=== PATIENT | female | born 1995 | race Caucasian/White ===

== ENCOUNTER 2016-03-11 14:55 | Emergency (ER) | payer OTHER ==
[~2016-03-11] VITALS: Ht 170.2 cm; Wt 84.1 kg
[~2016-03-11 14:55] MED LIST: FOCALIN XR20 MG PO; NORCO 325 MG-51 TAB PO; ZOFRAN 4MG T4 MG/TAB PO
[2016-03-11 15:05] VITALS: BP 142/83; PULSE 106; TEMP 99.6
[2016-03-11] MEDS ORDERED: AMOXICILLIN 50500 MG PO (15:24)
== END 2016-03-11 15:27 | disposition home or self-care (01) ==
LOC: COL.ER 14:55
DX: H66.91 Otitis media, unspecified, right ear (principal); J06.9 Acute upper respiratory infection, unspecified

== ENCOUNTER 2016-09-08 08:26 | Emergency (ER) | payer MEDICAID ==
[~2016-09-08] VITALS: Ht 170.2 cm; Wt 88.6 kg
[~2016-09-08 08:26] MED LIST changes: +AMOXICILLIN 50500 MG PO
[2016-09-08 08:31] VITALS: BP 130/69; TEMP 98.3
[2016-09-08 09:32] LABS: ADJUSTED CALCIUM 9.4 mg/dL (8.4-10.2); ALBUMIN 4.4 gm/dL (3.5-5.0); BILIRUBIN,TOTAL 0.6 mg/dL (0.0-1.0); CALCIUM 9.7 mg/dL (8.4-10.2); CREATININE, serum 0.48 mg/dL (0.52-1.25); POTASSIUM 3.9 mmol/L (3.4-5.0); TOTAL PROTEIN 7.6 gm/dL (6.4-8.2)
[2016-09-08 09:33] LABS: BASO % 0.3 % (0.0-2.0); EOS # 0.2 (0.0-0.7); GRAN # 5.5 (1.4-6.5); GRAN % 73.8 % (42.2-75.2); HEMOGLOBIN 13.4 g/dl (12.0-15.0); LYMPH # 1.2 (1.2-3.4); LYMPH % 15.8 % (20.0-51.0); MEAN CELL VOLUME 80 fl (80.0-95.0); MEAN CORPUSCULAR HEMOGLOBIN 28 pg (26.0-32.0); MEAN CORPUSCULAR HGB CONC 34 g/dl (33.0-37.0); MEAN PLATELET VOLUME 11.3 fl (7.4-10.4); MONO # 0.6 (0.1-0.6); MONO % 7.8 % (1.7-9.3); PLATELET COUNT 252 K/mm3 (130-400); RED BLOOD COUNT 4.88 M/mm3 (4.10-5.30); REDCELL DISTRIBUTION WIDTH-CV 14.9 % (11.5-14.5); WHITE BLOOD COUNT 7.5 K/mm3 (4.8-10.8)
[2016-09-08 09:44] LABS: PH 8 (5-8); SQUAMOUS EPITHELIAL >50 /hpf; URINE APPEARANCE Turbid; URINE BACTERIA None Seen /hpf; URINE BILIRUBIN Negative (NEGATIVE); URINE BLOOD Negative (NEGATIVE); URINE COLOR Amber; URINE GLUCOSE Negative (NEGATIVE); URINE KETONE Negative (NEGATIVE); URINE UROBILINOGEN Negative (NEGATIVE); URINE WBC 20-50 /hpf
[2016-09-08] MEDS ORDERED: MACROBID 1100 MG/CAP PO (09:47)
[2016-09-08 10:55] VITALS: PULSE 78
== END 2016-09-08 10:56 | disposition home or self-care (01) ==
LOC: COL.ER 08:26
PROVIDERS: Nurse Practitioner
DX: O23.41 Unspecified infection of urinary tract in pregnancy, first trimester (principal); O21.9 Vomiting of pregnancy, unspecified; O99.331 Smoking (tobacco) complicating pregnancy, first trimester; F17.210 Nicotine dependence, cigarettes, uncomplicated; Z3A.13 13 weeks gestation of pregnancy
CPT/HCPCS: J2765; J7030

== ENCOUNTER 2016-11-05 02:44 | Emergency (ER) | payer OTHER ==
[~2016-11-05] VITALS: Ht 170.2 cm; Wt 89.1 kg
[~2016-11-05 02:44] MED LIST changes: +MACROBID 1100 MG/CAP PO
[2016-11-05 02:46] VITALS: TEMP 97.2
[2016-11-05] MEDS ORDERED: PRENATAL1 TA7 PO (02:52)
[2016-11-05 03:24] LABS: COLLECTION METHOD CLEAN CATCH
[2016-11-05 03:27] LABS: BASO % 0.4 % (0.0-2.0); EOS # 0.1 (0.0-0.7); EOS % 1.5 % (0-4.0); GRAN # 5.9 (1.4-6.5); GRAN % 68.6 % (42.2-75.2); LYMPH # 1.6 (1.2-3.4); LYMPH % 18.3 % (20.0-51.0); MEAN CELL VOLUME 82 fl (80.0-95.0); MEAN CORPUSCULAR HGB CONC 35 g/dl (33.0-37.0); MEAN PLATELET VOLUME 11.4 fl (7.4-10.4); MONO # 0.9 (0.1-0.6); MONO % 10.6 % (1.7-9.3); PLATELET COUNT 250 K/mm3 (130-400); RED BLOOD COUNT 4.04 M/mm3 (4.10-5.30); REDCELL DISTRIBUTION WIDTH-CV 14.6 % (11.5-14.5)
[2016-11-05 03:28] LABS: HEMATOCRIT 33.2 % (35.0-45.0); HEMOGLOBIN 11.5 g/dl (12.0-15.0); MEAN CORPUSCULAR HEMOGLOBIN 28 pg (26.0-32.0)
[2016-11-05 03:34] LABS: AMORPHOUS CRYSTAL Present /uL; MUCOUS Present /lpf; PH 7 (5-8); SQUAMOUS EPITHELIAL 20-50 /hpf; URINE APPEARANCE Cloudy; URINE BACTERIA Moderate /hpf; URINE BILIRUBIN Negative (NEGATIVE); URINE BLOOD Negative (NEGATIVE); URINE COLOR Yellow; URINE GLUCOSE Negative (NEGATIVE); URINE KETONE Negative (NEGATIVE); URINE LEUKOCYTE ESTERASE 3+ (NEGATIVE); URINE NITRATE Negative (NEGATIVE); URINE PROTEIN(semi-quant) Negative (NEGATIVE); URINE RBC 0-2 /hpf; URINE UROBILINOGEN Negative (NEGATIVE)
[2016-11-05 03:38] LABS: ALBUMIN 3.6 gm/dL (3.5-5.0); BILIRUBIN,TOTAL 0.3 mg/dL (0.0-1.0); CREATININE, serum 0.49 mg/dL (0.52-1.25); POTASSIUM 3.2 mmol/L (3.4-5.0); TOTAL PROTEIN 6.7 gm/dL (6.4-8.2)
[2016-11-05] MEDS ORDERED: MACROBID 1100 MG/CAP PO (03:59)
[2016-11-05] MEDS ORDERED: PHENERGAN 25 TA25 MG PO (04:00)
[2016-11-05 04:46] VITALS: BP 127/70; PULSE 80
== END 2016-11-05 04:48 | disposition home or self-care (01) ==
LOC: COL.ER 02:44
PROVIDERS: Emergency Medicine
DX: O23.42 Unspecified infection of urinary tract in pregnancy, second trimester (principal); B96.89 Other specified bacterial agents as the cause of diseases classified elsewhere; Z3A.22 22 weeks gestation of pregnancy
CPT/HCPCS: J2550; J7030

== ENCOUNTER 2016-11-23 06:33 | Emergency (ER) | payer MEDICAID ==
[~2016-11-23] VITALS: Ht 170.2 cm; Wt 89.1 kg
[~2016-11-23 06:33] MED LIST changes: +PHENERGAN 25 TA25 MG PO; +PRENATAL1 TA7 PO
[2016-11-23 06:36] VITALS: TEMP 98.9
[2016-11-23] MEDS ORDERED: ZITHROMAX 250M250 MG PO (07:00)
[2016-11-23 07:30] VITALS: BP 128/78; PULSE 77
== END 2016-11-23 07:31 | disposition home or self-care (01) ==
LOC: COL.ER 06:33
DX: O99.512 Diseases of the respiratory system complicating pregnancy, second trimester (principal); J40 Bronchitis, not specified as acute or chronic; J32.9 Chronic sinusitis, unspecified; Z3A.24 24 weeks gestation of pregnancy

== ENCOUNTER 2016-12-21 21:49 | Outpatient (CLI) | payer MEDICAID ==
[~2016-12-21] VITALS: Ht 170.2 cm; Wt 93.6 kg
[~2016-12-21 21:49] MED LIST changes: +ZITHROMAX 250M250 MG PO
[2016-12-21 22:05] VITALS: BP 120/70; PULSE 75; TEMP 98
[2016-12-21 22:48] LABS: COLLECTION METHOD CLEAN CATCH
[2016-12-21 22:53] LABS: PH 7 (5-8); SQUAMOUS EPITHELIAL 0-2 /hpf; URINE APPEARANCE Clear; URINE BACTERIA Rare /hpf; URINE BILIRUBIN Negative (NEGATIVE); URINE BLOOD Negative (NEGATIVE); URINE COLOR Yellow; URINE GLUCOSE Negative (NEGATIVE); URINE KETONE Negative (NEGATIVE); URINE LEUKOCYTE ESTERASE Negative (NEGATIVE); URINE PROTEIN(semi-quant) Negative (NEGATIVE); URINE RBC 0-2 /hpf; URINE UROBILINOGEN Negative (NEGATIVE)
== END 2016-12-21 23:10 | disposition home or self-care (01) ==
LOC: LDRO 21:49
PROVIDERS: Student in an Organized Health Care Education/Training Program
DX: O99.89 Other specified diseases and conditions complicating pregnancy, childbirth and the puerperium (principal); M54.9 Dorsalgia, unspecified; Z3A.28 28 weeks gestation of pregnancy

== ENCOUNTER 2017-02-02 20:37 | Outpatient (CLI) | payer OTHER ==
[~2017-02-02] VITALS: Ht 17.8 cm; Wt 96.8 kg
[2017-02-02 21:01] VITALS: BP 131/85; PULSE 72; TEMP 97.9
[2017-02-02 21:30] VITALS: BP 131/85; PULSE 72; TEMP 97.9
[2017-02-02 21:52] VITALS: BP 122/81; PULSE 73
== END 2017-02-02 22:10 | disposition home or self-care (01) ==
LOC: LDRO 20:37 → LDR 20:45 → LDRO 22:10
DX: O62.9 Abnormality of forces of labor, unspecified (principal); Z3A.35 35 weeks gestation of pregnancy
CPT/HCPCS: OP

== ENCOUNTER 2017-02-13 17:51 | Outpatient (CLI) | payer OTHER ==
[~2017-02-13] VITALS: Ht 170.2 cm; Wt 98.6 kg
[2017-02-13] MEDS ORDERED: PRENATAL MVI (18:17)
[2017-02-13 18:22] VITALS: BP 118/76; PULSE 83; TEMP 98.4
== END 2017-02-13 20:05 | disposition home or self-care (01) ==
LOC: LDRO 17:51
DX: O26.893 Other specified pregnancy related conditions, third trimester (principal); R10.9 Unspecified abdominal pain; Z3A.36 36 weeks gestation of pregnancy

== ENCOUNTER 2017-02-17 19:56 | Emergency (ER) | payer MEDICAID ==
[~2017-02-17] VITALS: Ht 170.2 cm; Wt 98.6 kg
[~2017-02-17 19:56] MED LIST changes: +PRENATAL MVI
[2017-02-17 20:03] VITALS: BP 131/85; TEMP 98.5
[2017-02-17] MEDS ORDERED: PEN-VEE K500 MG PO (20:06)
[2017-02-17 22:23] VITALS: PULSE 88
== END 2017-02-17 22:23 | disposition home or self-care (01) ==
LOC: COL.ER 19:56
DX: O99.613 Diseases of the digestive system complicating pregnancy, third trimester (principal); K02.9 Dental caries, unspecified; Z3A.38 38 weeks gestation of pregnancy; Z87.891 Personal history of nicotine dependence

== ENCOUNTER 2017-02-28 13:35 | Inpatient (IN) | payer MEDICAID ==
[~2017-02-28] VITALS: Ht 170.2 cm; Wt 101.4 kg
[2017-02-28] VITALS (31 sets, daily range): BP systolic 105–150; BP diastolic 57–92; PULSE 66–104; TEMP 97.2–98.3
[~2017-02-28 13:35] MED LIST changes: +PEN-VEE K500 MG PO
[2017-02-28] MEDS ORDERED: PRENATAL (14:35)
[2017-02-28 15:01] LABS: BASO % 0.5 % (0.0-2.0); EOS # 0.1 (0.0-0.7); EOS % 0.8 % (0-4.0); GRAN # 5.9 (1.4-6.5); GRAN % 67.9 % (42.2-75.2); LYMPH # 1.6 (1.2-3.4); LYMPH % 18.8 % (20.0-51.0); MEAN CELL VOLUME 79 fl (80.0-95.0); MEAN CORPUSCULAR HGB CONC 32 g/dl (33.0-37.0); MEAN PLATELET VOLUME 11.9 fl (7.4-10.4); MONO % 11.1 % (1.7-9.3); PLATELET COUNT 289 K/mm3 (130-400); RED BLOOD COUNT 4.46 M/mm3 (4.10-5.30); REDCELL DISTRIBUTION WIDTH-CV 15.8 % (11.5-14.5)
[2017-02-28 15:14] LABS: HEMOGLOBIN 11.2 g/dl (12.0-15.0); MEAN CORPUSCULAR HEMOGLOBIN 25 pg (26.0-32.0)
[2017-02-28 16:28] LABS: TRICYCLIC ANTIDEPRESS URINE NEGATIVE
[2017-03-01 01:15] VITALS: BP 126/59; PULSE 86; TEMP 98.6
[2017-03-01 05:15] VITALS: BP 123/71; PULSE 86; TEMP 97.9
[2017-03-01 06:17] LABS: HEMOGLOBIN 8.8 g/dl (12.0-15.0)
[2017-03-01 08:46] VITALS: BP 115/61; PULSE 82; TEMP 97.7
[2017-03-01 17:30] VITALS: BP 127/69; PULSE 92; TEMP 97.8
[2017-03-01 21:00] VITALS: BP 121/62; PULSE 86; TEMP 99.3
[2017-03-02 07:12] VITALS: BP 130/73; PULSE 83; TEMP 98.5
[2017-03-02] MEDS ORDERED: IBU600 MG PO (08:31)
== END 2017-03-02 11:15 | disposition home or self-care (01) | DRG 775 ==
LOC: LDRO 13:35 → LDR 13:36 → OB 14:25 → LDRO 14:25 → LDR 14:25 → OB 23:30
PROVIDERS: Obstetrics & Gynecology
PROC: 10E0XZZ Delivery of Products of Conception, External Approach (ICD-10-PCS; principal; 2017-02-28)
PROC: 0KQM0ZZ Repair Perineum Muscle, Open Approach (ICD-10-PCS; 2017-02-28)
DX: O66.0 Obstructed labor due to shoulder dystocia (principal); O70.1 Second degree perineal laceration during delivery; O69.81X0 Labor and delivery complicated by cord around neck, without compression, not applicable or unspecified; Z3A.38 38 weeks gestation of pregnancy; Z37.0 Single live birth
CPT/HCPCS: J2590; J2795; J7120

== ENCOUNTER 2017-03-04 17:05 | Emergency (ER) | payer MEDICAID ==
[~2017-03-04 17:05] MED LIST changes: +IBU600 MG PO; +PRENATAL
[2017-03-04 17:13] VITALS: TEMP 99.1
[2017-03-04 19:47] LABS: BASO % 0.3 % (0.0-2.0); EOS # 0.3 (0.0-0.7); EOS % 2.3 % (0-4.0); GRAN # 8.3 (1.4-6.5); GRAN % 71.5 % (42.2-75.2); HEMATOCRIT 28.6 % (35.0-45.0); LYMPH # 1.8 (1.2-3.4); LYMPH % 15.3 % (20.0-51.0); MEAN CELL VOLUME 80 fl (80.0-95.0); MEAN CORPUSCULAR HEMOGLOBIN 25 pg (26.0-32.0); MEAN CORPUSCULAR HGB CONC 32 g/dl (33.0-37.0); MEAN PLATELET VOLUME 10.7 fl (7.4-10.4); MONO # 1.1 (0.1-0.6); MONO % 9.5 % (1.7-9.3); PLATELET COUNT 305 K/mm3 (130-400); RED BLOOD COUNT 3.57 M/mm3 (4.10-5.30); REDCELL DISTRIBUTION WIDTH-CV 16.2 % (11.5-14.5)
[2017-03-04 19:51] LABS: COLLECTION METHOD CATHETER
[2017-03-04 19:59] LABS: MUCOUS Present /lpf; PH 6 (5-8); SQUAMOUS EPITHELIAL 0-2 /hpf; URINE APPEARANCE Clear; URINE BACTERIA None Seen /hpf; URINE BILIRUBIN Negative (NEGATIVE); URINE BLOOD Negative (NEGATIVE); URINE COLOR Yellow; URINE GLUCOSE Negative (NEGATIVE); URINE KETONE Negative (NEGATIVE); URINE LEUKOCYTE ESTERASE Trace (NEGATIVE); URINE NITRATE Negative (NEGATIVE); URINE PROTEIN(semi-quant) Negative (NEGATIVE); URINE UROBILINOGEN Negative (NEGATIVE)
[2017-03-04] MEDS ORDERED: CEPHALEXIN500 M1 PO (20:36)
[2017-03-04 20:50] VITALS: BP 128/85; PULSE 91
== END 2017-03-04 20:50 | disposition home or self-care (01) ==
LOC: COL.ER 17:05
PROVIDERS: Emergency Medicine
DX: O72.1 Other immediate postpartum hemorrhage (principal); O86.20 Urinary tract infection following delivery, unspecified; F32.9 Major depressive disorder, single episode, unspecified

== ENCOUNTER 2017-06-19 18:38 | Emergency (ER) | payer SELFPAY ==
[~2017-06-19] VITALS: Ht 170.2 cm; Wt 92.3 kg
[~2017-06-19 18:38] MED LIST changes: +CEPHALEXIN500 M1 PO
[2017-06-19 18:58] VITALS: BP 134/68; TEMP 99.5
[2017-06-19 19:18] LABS: COLLECTION METHOD CLEAN CATCH
[2017-06-19 19:22] LABS: MEAN CELL VOLUME 68 fl (80.0-95.0); MEAN CORPUSCULAR HGB CONC 31 g/dl (33.0-37.0); PLATELET COUNT 432 K/mm3 (130-400); RED BLOOD COUNT 5.07 M/mm3 (4.10-5.30); REDCELL DISTRIBUTION WIDTH-CV 17.8 % (11.5-14.5)
[2017-06-19 19:31] LABS: AMORPHOUS CRYSTAL Present /uL; MUCOUS Present /lpf; PH 6 (5-8); URINE APPEARANCE Cloudy; URINE BACTERIA None Seen /hpf; URINE BILIRUBIN Negative (NEGATIVE); URINE BLOOD Negative (NEGATIVE); URINE COLOR Yellow; URINE GLUCOSE Negative (NEGATIVE); URINE KETONE Negative (NEGATIVE); URINE LEUKOCYTE ESTERASE 2+ (NEGATIVE); URINE NITRATE Negative (NEGATIVE); URINE PROTEIN(semi-quant) Negative (NEGATIVE); URINE RBC 0-2 /hpf; URINE UROBILINOGEN Negative (NEGATIVE)
[2017-06-19 19:34] LABS: ALBUMIN 4.3 gm/dL (3.5-5.0); BILIRUBIN,TOTAL 0.2 mg/dL (0.0-1.0); CALCIUM 9.6 mg/dL (8.4-10.2); CREATININE, serum 1.17 mg/dL (0.52-1.25); TOTAL PROTEIN 8.2 gm/dL (6.4-8.2)
[2017-06-19 19:39] LABS: HEMATOCRIT 34.4 % (35.0-45.0); HEMOGLOBIN 10.5 g/dl (12.0-15.0); MEAN CORPUSCULAR HEMOGLOBIN 21 pg (26.0-32.0)
[2017-06-19 19:51] LABS: ANISOCYTOSIS 2+; BAND 5 % (0-10); BASOPHIL 1 % (0-2); EOSINOPHIL 3 % (0-4); HYPOCHROMIA 1+; LYMPHOCYTE 19 % (20.0-51.0); NEUTROPHILS 62 % (42.0-75.2); OVALOCYTES 1+; PLATELET ESTIMATE NORMAL (NORMAL)
[2017-06-19] MEDS ORDERED: MACROBID 1100 MG/CAP PO (20:41)
[2017-06-19 21:00] VITALS: PULSE 70
== END 2017-06-19 21:00 | disposition home or self-care (01) ==
LOC: COL.ER 18:38
PROVIDERS: Family Medicine
DX: N39.0 Urinary tract infection, site not specified (principal)
CPT/HCPCS: J0696; J1885; J2550; J7030

== ENCOUNTER 2017-11-09 16:31 | Emergency (ER) | payer MEDICAID ==
[~2017-11-09] VITALS: Ht 170.2 cm; Wt 97.7 kg
[2017-11-09 16:34] VITALS: TEMP 98.7
[2017-11-09] MEDS ORDERED: ZOLOFT 100MG100 MG PO (16:36)
[2017-11-09] MEDS ORDERED: NEXPLANON68 MG ID (16:37)
[2017-11-09 16:58] LABS: COLLECTION METHOD CLEAN CATCH
[2017-11-09 17:05] LABS: BASO % 0.5 % (0.0-2.0); EOS # 0.2 (0.0-0.7); EOS % 2.2 % (0-4.0); GRAN # 5.2 (1.4-6.5); HEMATOCRIT 40.6 % (37.0-47.0); HEMOGLOBIN 12.6 g/dl (12.5-16.0); LYMPH # 2.4 (1.2-3.4); LYMPH % 27.4 % (20.0-51.0); MEAN CELL VOLUME 70 fl (80.0-100.0); MEAN CORPUSCULAR HEMOGLOBIN 22 pg (27.0-31.0); MEAN CORPUSCULAR HGB CONC 31 g/dl (33.0-37.0); MEAN PLATELET VOLUME 9.8 fl (7.4-10.4); MONO # 0.7 (0.1-0.6); MONO % 8.4 % (1.7-9.3); PLATELET COUNT 365 K/mm3 (130-400); RED BLOOD COUNT 5.79 M/mm3 (4.10-5.30); REDCELL DISTRIBUTION WIDTH-CV 18.9 % (11.5-14.5)
[2017-11-09 17:09] LABS: MUCOUS Present /lpf; PH 6 (5-8); URINE APPEARANCE Hazy; URINE BACTERIA None Seen /hpf; URINE BILIRUBIN Negative (NEGATIVE); URINE BLOOD Negative (NEGATIVE); URINE COLOR Yellow; URINE GLUCOSE Negative (NEGATIVE); URINE KETONE Negative (NEGATIVE); URINE LEUKOCYTE ESTERASE 1+ (NEGATIVE); URINE NITRATE Negative (NEGATIVE); URINE PROTEIN(semi-quant) Negative (NEGATIVE); URINE RBC 0-2 /hpf
[2017-11-09 17:13] LABS: ALBUMIN 4.5 gm/dL (3.5-5.0); BILIRUBIN,TOTAL 0.3 mg/dL (0.0-1.0); C-REACTIVE PROTEIN 2.4 mg/dL (0.0-0.9); CALCIUM 9.7 mg/dL (8.4-10.2); CREATININE, serum 0.7 mg/dL (0.52-1.25); TOTAL PROTEIN 8.1 gm/dL (6.4-8.2)
[2017-11-09] MEDS ORDERED: ZOFRAN 4MG T4 MG/TAB PO (18:28)
[2017-11-09] MEDS ORDERED: NORCO 325 MG-51 TAB PO (18:28)
[2017-11-09] MEDS ORDERED: PROTONIX 40MG T40 MG PO (18:28)
[2017-11-09 18:37] VITALS: BP 121/75; PULSE 74
== END 2017-11-09 18:45 | disposition home or self-care (01) ==
LOC: COL.ER 16:31
PROVIDERS: Emergency Medicine
DX: R10.11 Right upper quadrant pain (principal); F32.9 Major depressive disorder, single episode, unspecified; F17.210 Nicotine dependence, cigarettes, uncomplicated
CPT/HCPCS: J1170; J1885; J2405; J7030; Q9967

== ENCOUNTER → 2017-11-21 | Outpatient (CLI) | payer MEDICAID ==
[~2017-11-21] MED LIST changes: +NEXPLANON68 MG ID; +PROTONIX 40MG T40 MG PO; +ZOLOFT 100MG100 MG PO
== END ==
LOC: COL.RAD 10:02
DX: R10.11 Right upper quadrant pain (principal)

== ENCOUNTER → 2017-11-28 | Outpatient (CLI) | payer MEDICAID | LOC: COL.RAD 09:44 | DX: R10.9 Unspecified abdominal pain (principal) | CPT/HCPCS: A9537 ==

== ENCOUNTER 2018-10-22 05:56 | Emergency (ER) | payer OTHER ==
[~2018-10-22] VITALS: Ht 170.2 cm; Wt 100.0 kg
[2018-10-22 06:29] LABS: COLLECTION METHOD CLEAN CATCH
[2018-10-22 06:32] LABS: BASO % 0.2 % (0.0-2.0); EOS % 0.2 % (0-4.0); GRAN # 11.7 (1.4-6.5); GRAN % 87.8 % (42.2-75.2); HEMATOCRIT 46.1 % (37.0-47.0); HEMOGLOBIN 14.8 g/dl (12.5-16.0); LYMPH # 0.7 (1.2-3.4); LYMPH % 5.3 % (20.0-51.0); MEAN CELL VOLUME 78 fl (80.0-100.0); MEAN CORPUSCULAR HEMOGLOBIN 25 pg (27.0-31.0); MEAN CORPUSCULAR HGB CONC 32 g/dl (33.0-37.0); MEAN PLATELET VOLUME 10.2 fl (7.4-10.4); MONO # 0.8 (0.1-0.6); MONO % 6.1 % (1.7-9.3); PLATELET COUNT 318 K/mm3 (130-400); RED BLOOD COUNT 5.95 M/mm3 (4.10-5.30); REDCELL DISTRIBUTION WIDTH-CV 16.2 % (11.5-14.5)
[2018-10-22 06:38] LABS: MUCOUS Present /lpf; PH 6 (5-8); URINE APPEARANCE Cloudy; URINE BACTERIA Rare /hpf; URINE BILIRUBIN Negative (NEGATIVE); URINE BLOOD Negative (NEGATIVE); URINE COLOR Yellow; URINE GLUCOSE Negative (NEGATIVE); URINE KETONE Trace (NEGATIVE); URINE LEUKOCYTE ESTERASE 2+ (NEGATIVE); URINE NITRATE Negative (NEGATIVE); URINE PROTEIN(semi-quant) 1+ (NEGATIVE); URINE RBC 0-2 /hpf; URINE UROBILINOGEN Negative (NEGATIVE)
[2018-10-22 06:52] LABS: ALBUMIN 5.1 gm/dL (3.5-5.0); BILIRUBIN,TOTAL 0.9 mg/dL (0.0-1.0); C-REACTIVE PROTEIN 3.4 mg/dL (0.0-0.9); CALCIUM 9.7 mg/dL (8.4-10.2); CREATININE, serum 0.76 (0.52-1.25); POTASSIUM 4.2 mmol/L (3.4-5.0); TOTAL PROTEIN 8.8 gm/dL (6.4-8.2)
[2018-10-22] MEDS ORDERED: CEPHALEXIN500 M1 PO (06:54)
[2018-10-22] MEDS ORDERED: ZOFRAN 4MG T4 MG/TAB PO (08:33)
[2018-10-22 08:45] VITALS: BP 121/77; PULSE 95; TEMP 98.7
== END 2018-10-22 08:45 | disposition home or self-care (01) ==
LOC: COL.ER 05:56
PROVIDERS: Emergency Medicine
DX: N39.0 Urinary tract infection, site not specified (principal); D72.829 Elevated white blood cell count, unspecified; F31.9 Bipolar disorder, unspecified; F17.210 Nicotine dependence, cigarettes, uncomplicated
CPT/HCPCS: A4216; C9113; J0696; J1885; J2405; J2550; J7030; Q9967